=== PATIENT | male | born 1960 | race Hispanic/Latino ===

== ENCOUNTER 2019-06-28 16:41 | Inpatient (IN) | payer OTHER ==
[2019-06-28 17:50] LABS: #Lymphocytes 1.3 thou/uL (1.20-3.40); #Monocytes 0.7 thou/uL (0.11-0.59); #Neutrophils 5.6 thou/uL (1.40-6.50); %Basophils 0.1 % (0.0-1.0); %Eosinophils 0.4 % (0.0-10.0); %Lymphocytes 16.8 % (21.0-51.0); %Monocytes 8.7 % (0.0-10.0); %Neutrophils 73.9 % (42.0-75.0); Hemoglobin 7.8 g/dL (14.0-18.0); Mean Corpuscular HGB CONC 35.3 g/dL (32.0-36.0); Mean Corpuscular Hemoglobin 33.1 pg (27.0-31.0); Mean Corpuscular Volume 93.9 fL (78.0-98.0); Mean Platelet Volume 8.5 fL (7.4-10.4); Platelet Count 153 thou/uL (130-400); RBC Distribution Width 19.9 % (11.5-14.5); Red Blood Cell (RBC) Count 2.37 mill/uL (4.70-6.10); White Blood Cell (WBC) Count 7.6 thou/uL (4.8-10.8)
--- NOTE | 2019-06-28 17:57 | RAD ---
FRONTAL RADIOGRAPH CHEST: 06/28/19 COMPARISON: None. HISTORY: Chest pain. FINDINGS: Catheter tubing overlies the right upper quadrant. There is a Port-A-Cath inserted via left subclavia n approach with distal tip overlying the cavoatrial junction. No pneumothorax or pleural fluid. No fo [place] consolidation or alveolar edema. IMPRESSION: No focal consolidation or alveolar edema. POS: DAVI
[2019-06-28 18:00] LABS: ALT (SGPT) 16 U/L (8-55); AST (SGOT) 16 U/L (5-34); Albumin 3.4 g/dL (3.5-5.0); Alkaline Phosphatase 419 U/L (40-110); Bilirubin, Total 1.8 mg/dL (0.2-1.2); CK (CPK) 18 U/L (30-200); Calc. Creatinine Clearance 0 mL/min (70-130); Calcium 9.2 mg/dL (7.8-10.44); Chloride 98 mmol/L (98-107); Estimated GFR-MDRD 10; Globulin 4.4 g/dL (2.4-3.5); Glucose 126 mg/dL (70-105); Lipase 156 U/L (8-78); Magnesium 2.3 mg/dL (1.6-2.6); Potassium 3.7 mmol/L (3.5-5.1); Protein, Total 7.8 g/dL (6.0-8.3); Sodium 121 mmol/L (136-145)
[2019-06-28 18:11] LABS: BUN (Urea Nitrogen) 136 mg/dL (8.4-25.7); Carbon Dioxide Less than 8 mmol/L (22-29)
[2019-06-28 18:25] LABS: Anisocytosis SLIGHT = 6-15 cells (100X) (0-5/hpf); MDiff Complete? YES; Ovalocytes SLIGHT = 2-5 cells (100X) (0-1/hpf); Platelet Morphology Comment Appears Adequate; Polychromasia SLIGHT = 2-3 cells (100X) (0-2/hpf)
[2019-06-28 18:38] LABS: Bilirubin Negative (Negative); Blood, Urine 2+ (Negative); Clarity Clear (Clear); Glucose, Urine (Dipstick) Normal (Negative); Leukocyte Negative Leu/uL (Negative); Nitrite Negative (Negative); Protein, Urine (Dipstick) 50 mg/dL (Neg-Trace); RBC/HPF 21-50 HPF (0-3); Squamous Epithelial 0-3 HPF (0-3); Urobilinogen Normal mg/dL (Less than 2)
[2019-06-28] MEDS ORDERED: Ondansetron PF 4 MG/2 ML Vial IVP PRN (18:44)
[2019-06-28] MEDS ORDERED: HYDROcodone/Acetaminophen 5/325 mg Tablet PO PRN (18:44)
[2019-06-28] MEDS ORDERED: Sodium Bicarbonate 150 MEQ in Dextrose 5 % And 0.9 % NaCl 1,000 ML IV SCH (18:45)
[2019-06-28 18:51] LABS: Bacteria/HPF Rare-Few HPF (None Seen)
--- NOTE | 2019-06-28 20:00 | HP ---
CHIEF COMPLAINT: He was sent to the hospital from his oncologist's office with concerns of renal failure. HISTORY OF PRESENT ILLNESS: The patient is a 58-year-old male with history of cholangiocarcinoma, status post surgery and drain placement in [place], who has been getting chemotherapy with Dr. Wu, and his last dose was a month ago. Since then, he has been experiencing worsening kidney function, that was managed with IV fluids on an outpatient basis, but progressed over the past 2 weeks. He was sent to the emergency department for further evaluation. In the ER, the patient was complaining of abdominal pain and feeling tired and weak. His laboratory studies revealed anemia with hemoglobin level of 7.8 and renal failure with creatinine level of 5.63 and BUN of 137. In addition, he was found to be acidotic, and his sodium level was low. The patient denies any nausea or vomiting. He denies fever, chills, shortness of breath, or cough. REVIEW OF SYSTEMS: Negative except as noted in HPI. PAST MEDICAL HISTORY: As noted above. PAST SURGICAL HISTORY: He had a procedure for his cholangiocarcinoma, and biliary drains were placed. We will need to obtain the medical records for further clarification. SOCIAL HISTORY: The patient denies smoking, alcohol use, or illicit drug use. PHYSICAL EXAMINATION: GENERAL: The patient is alert and oriented. HEENT: Head is normocephalic and atraumatic. Extraocular muscles are intact. Pupils are equal and reactive to light. He is not overtly jaundiced. NECK: Supple. CHEST: Revealed diminished breath sounds at the bases. CARDIOVASCULAR: Revealed normal S1 and S2. No murmurs, rubs, or gallops. ABDOMEN: Slightly distended and tender in the right upper quadrant. EXTREMITIES: Did not show any rashes or edema. NEUROLOGIC: Revealed normal cranial nerves 2 through 12, and no focal deficits. ASSESSMENT: 1. Acute renal failure associated with likely acute tubular necrosis related to dehydration and chemotherapy. 2. Hyponatremia. 3. Likely mixed anion gap and non-anion gap acidosis related to his acute renal failure. 4. Dehydration. 5- Anemia of chronic disease. PLAN: The patient will be admitted to the hospital. We will initiate IV normal saline with sodium bicarbonate per Nephrology recommendations. We will monitor his electrolytes closely. We will also obtain Oncology consultation and Palliative Care consult. His prognosis is grim. This was discussed with Dr. Wu. Job ID: [id number]
[2019-06-28 21:07] LABS: Creatinine, Urine 76.59 mg/dL (63-166)
--- NOTE | 2019-06-28 21:25 | CON ---
DATE OF CONSULTATION: 06/28/2019 SERVICE: Nephrology. REASON FOR CONSULTATION: Acute kidney injury. REQUESTING PHYSICIAN: Maria Alejandra Hays MD CHIEF COMPLAINT: Nausea, vomiting, and renal insufficiency. HISTORY OF PRESENT ILLNESS: A 58-year-old male with known history of metastatic cholangiocarcinoma status post surgery and drain placement, CKD, and intermittent nausea and vomiting as well as poor oral intake, who has been receiving IV fluids intermittently on an outpatient basis at the oncology office, who was admitted for further evaluation and management of nausea and vomiting as well as acute kidney injury. The patient reportedly developed worsening nausea and vomiting in the last 2 weeks despite IV fluid and was noted to have worsening renal function, hence was directed to present to the emergency room by the oncologist. History is limited as patient has memory lapses. He was admitted due to poor oral intake, some abdominal pain, nausea, vomiting, and generalized weakness. He however denied diarrhea, fever, chills, or rigors. He also denied shortness of breath or cough. On presentation to the ER, the patient was found to be dehydrated with creatinine of 5.63, as well as BUN of 137 and sodium of 121. He is admitted for further evaluation and treatment. Nephrology consult was requested for management of acute kidney injury and electrolyte derangements. PAST MEDICAL HISTORY: 1. Hypertension. 2. Diabetes mellitus. 3. Gout. 4. Chronic kidney disease. 5. Cholangiocarcinoma. 6. Obstructive jaundice, status post biliary stent placement. PAST SURGICAL HISTORY: Biliary drain placement. FAMILY HISTORY: Reviewed, but noncontributory. SOCIAL HISTORY: There is no history of smoking, alcohol use, or drug use. ALLERGIES: NO KNOWN DRUG ALLERGIES REPORTED. MEDICATIONS: Prior to hospital medications: This could not be validated and reconciled at this time and the patient has poor memory of his home medications. REVIEW OF SYSTEMS: This is grossly limited due to the patient's condition. Otherwise grossly negative other than pertinent positives and negatives included in the history of present illness. PHYSICAL EXAMINATION: VITAL SIGNS: Temperature 97.8, pulse 83, respiratory rate 14, SpO2 of 100% on room air, blood pressure 105/75. GENERAL: Chronically ill-looking male, in no obvious distress. Afebrile, acyanotic. HEENT: Normocephalic, atraumatic. Oral mucosa is dry. NECK: Supple with no obvious JVD. CARDIOVASCULAR: Regular rhythm and rate with normal heart sounds one and two. RESPIRATORY: Fair air entry bilateral, diminished at both bases with no obvious rhonchi or use of accessory muscles. GI: Mildly distended and tender in the right upper quadrant. Bowel sound is hypoactive. EXTREMITIES: Diffuse muscular atrophy noted. No obvious edema or erythema appreciated. SKIN: No obvious rash or ecchymosis appreciated. PUFF IRONER: Conscious and alert, oriented x2 at least. Moves all extremities. Cranial nerves 2 through 12 are grossly intact. DIAGNOSTIC DATA: CBC showed WBC count of 7.6, hemoglobin of 7.8, MCV of 93.9, platelets of 153. BMP today showed sodium 121, potassium 3.7, chloride 98, CO2 less than 8, BUN 136, creatinine 5.63, glucose 126, calcium 9.2, magnesium 2.3, total bilirubin 1.8, AST 16, ALT 16, alkaline phosphatase 419, total protein 7.8, albumin 3.4, globulin 4.4. CK is 18, troponin is 0.017. Lipase is 156. Urinalysis showed yellow clear urine with pH of 5.5, specific gravity of 1.012. Urine protein of 50, normal glucose, negative ketone, 2+ blood, negative nitrite , bilirubin, and normal urobilinogen, and negative leukocyte esterase. Microscopy showed 21 to 50 rbc's and 4 to 6 wbc's and rare bacteria. Review of medical records showed that the patient had creatinine of 2.26 on June 14, 2019. Chest x-ray performed earlier today showed no focal consolidation or alveolar edema. ASSESSMENT: 1. Acute kidney injury: Most likely due to hemodynamic factors related to volume depletion, dehydration. Acute tubular necrosis is a concern given chronicity and severity of volume depletion. 2. Severe dehydration/volume depletion. 3. Severe metabolic acidosis: Due to acute kidney injury with possible contribution from gastrointestinal losses, sepsis is another concern. 4. Hyponatremia: Most likely due to hypovolemia and volume depletion with appropriate ADH secretion. Some component of syndrome of inappropriate ADH secretion cannot be ruled out given the patient had some degree of chronic hyponatremia. 5. Chronic and intermittent nausea and vomiting. 6. Failure to thrive. 7. Cholangiocarcinoma with obstructive jaundice, status post biliary stent placement. 8. Anemia PLAN: 1. Start bicarb containing IV fluid. 2. Get urine electrolytes. 3. Avoid nephrotoxic agents. 4. Recheck renal function tests and electrolytes in the morning. 5. Antiemetics as needed. 6. [place] oral intake advised. 7. Further treatment to follow depending on hospital course. Job ID: [id number] MTDD
[2019-06-28] MEDS: Heparin 5,000 UNITS/ML VIAL SC SCH (21:39)
[2019-06-29 04:28] LABS: #Lymphocytes 1.4 thou/uL (1.20-3.40); #Monocytes 0.7 thou/uL (0.11-0.59); #Neutrophils 4.7 thou/uL (1.40-6.50); %Basophils 0.4 % (0.0-1.0); %Eosinophils 0.4 % (0.0-10.0); %Lymphocytes 20.5 % (21.0-51.0); %Monocytes 10.8 % (0.0-10.0); %Neutrophils 67.9 % (42.0-75.0); Hemoglobin 6.9 g/dL (14.0-18.0); Mean Corpuscular HGB CONC 34.2 g/dL (32.0-36.0); Mean Corpuscular Hemoglobin 32.1 pg (27.0-31.0); Mean Corpuscular Volume 93.8 fL (78.0-98.0); Mean Platelet Volume 8.6 fL (7.4-10.4); Platelet Count 126 thou/uL (130-400); Red Blood Cell (RBC) Count 2.15 mill/uL (4.70-6.10); White Blood Cell (WBC) Count 6.9 thou/uL (4.8-10.8)
[2019-06-29 04:49] LABS: Anion Gap 20 mmol/L (10-20); Calc. Creatinine Clearance 0 mL/min (70-130); Carbon Dioxide 11 mmol/L (22-29); Chloride 101 mmol/L (98-107); Estimated GFR-MDRD 12; Glucose 99 mg/dL (70-105); Potassium 3.3 mmol/L (3.5-5.1); Sodium 129 mmol/L (136-145)
[2019-06-29 05:06] LABS: BUN (Urea Nitrogen) 137 mg/dL (8.4-25.7)
[2019-06-29 05:28] VITALS: BMI 20.4
[2019-06-29] MEDS: Lactated Ringer's 1,000 ML IV SCH ×3 (07:13→21:36)
[2019-06-29] MEDS: Sodium Bicarbonate 150 MEQ in Dextrose 5% in Water 1,000 ML IV SCH (09:22)
[2019-06-29] MEDS: Heparin 5,000 UNITS/ML VIAL SC SCH ×3 (09:22→21:30)
[2019-06-29] MEDS ORDERED: Potassium Chloride 20 MEQ TAB PO SCH (10:45)
--- NOTE | 2019-06-29 11:48 | PRG ---
DATE OF SERVICE: 06/29/2019 SERVICE: Nephrology. SUBJECTIVE: A 58-year-old male with known history of cholangiocarcinoma, status post percutaneous biliary drainage, admitted due to worsening failure to thrive associated with poor oral intake and acute kidney injury. The patient was found to have severe dehydration with marked azotemia. He was admitted with some vomiting, but denied diarrhea. Remained afebrile. OBJECTIVE: VITAL SIGNS: Temperature 97.4, pulse 91, respiratory rate 14, SpO2 100% on room air, blood pressure 91/55. GENERAL: Chronically ill-looking male, in no obvious distress. Afebrile, acyanotic. HEENT: Normocephalic, atraumatic. Oral mucosa is mildly dry. NECK: Supple with no JVD. CARDIOVASCULAR: Regular rhythm and rate with some transmitted breath sounds. RESPIRATORY: Fair air entry bilaterally with some transmitted breath sounds. No obvious rhonchi or use of accessory muscles appreciated. CARDIOVASCULAR: Regular rhythm and rate with normal heart sounds one and two. GI: Abdomen is scaphoid. Bilateral upper quadrant percutaneous tubes noted. Bowel sound is normoactive. EXTREMITIES: Diffuse muscular atrophy of the lower extremities noted. No erythema or edema appreciated. 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 DIAGNOSTIC DATA: CBC showed WBC count of 6.9, hemoglobin of 6.9, MCV of 98.3, platelets of 126. BMP today showed sodium 129, potassium 3.3, chloride 101, CO2 of 11, BUN 137, creatinine 5.05, calcium 9.0, glucose 99. Urinalysis collected yesterday showed urine creatinine of 76.59 and urine sodium of less than 20, and urine urea nitrogen of 506 with fractional excretion of urea and sodium consistent with prerenal etiology. ASSESSMENT: 1. Acute kidney injury: Due to severe dehydration. 2. Severe dehydration. 3. Hypokalemia. 4. Hyponatremia: Due to volume depletion with appropriate ADH secretion. Sodium level is increasing. 5. Severe metabolic acidosis. 6. Protein-calorie malnutrition. 7. Failure to thrive. 8. Cholangiocarcinoma with obstructive jaundice, status post bilateral percutaneous drainage. 9. Volume depletion. PLAN: 1. We will increase IV fluid therapy. 2. We will start lactated Ringer's at 150 mL/hour and decrease sodium bicarbonate rate to 15 mL/hour, bringing it to a total of 200 mL/hour. 3. [place] oral intake advised. 4. Nutritional rehabilitation recommended. 5. We will replete serum potassium. 6. We will get serum phosphorus and magnesium in the morning. 7. Further treatment to follow depending on hospital course. Job ID: [id number]
--- NOTE | 2019-06-29 13:29 | CON ---
DATE OF CONSULTATION: REASON FOR CONSULT: Cholangiocarcinoma. HISTORY OF PRESENT ILLNESS: Mr. Americo Beauchamp is an unfortunate 58-year-old gentleman, who has cholangiocarcinoma, he is status post debulking and two biliary drain placements. He was last admitted here in May. He has had multiple drain replacements and issues with clogging. He has been getting dose reduced chemotherapy of cisplatin and gemcitabine. His last dose, however, was on June 01. He has been coming several days a week since that time for IV hydration. He was in our clinic yesterday, feeling poorly overall. He did receive 2 L of fluid. Chemistry drawn showed worsening creatinine of 5.63. He was acidotic with a CO2 of less than 8. His sodium was 121. He was sent to the ER from our facility for admission and treatment. Mr. Americo Beauchamp has been struggling with poor appetite, weight loss, and pain. He has been advised to consider hospice, but has declined. He is seen at bedside and is resting comfortably at this time. PAST MEDICAL HISTORY: 1. Metastatic cholangiocarcinoma. 2. Type 2 diabetes. 3. Hypertension. 4. Chronic kidney disease. 5. Anemia. 6. Gout. 7. Kidney stones. 8. Colon polyp. PAST SURGICAL HISTORY: 1. Cystoscopy. 2. Ureteral stent placement. 3. Colonoscopy with polypectomy. 4. EUS. 5. Biliary stenting with drain placement. ALLERGIES: NO KNOWN DRUG ALLERGIES. HOME MEDICATIONS: 1. Dronabinol 5 mg b.i.d. 2. [place] 10/325 p.r.n. 3. Zofran p.r.n. 4. Remeron 15 mg p.o. at bedtime. FAMILY HISTORY: No history of cancer. SOCIAL HISTORY: , lives with his spouse. He is English-speaking only. No alcohol, tobacco, or illicit drug use. REVIEW OF SYSTEMS: Positive for weight loss, fatigue, weakness, and abdominal pain. PHYSICAL EXAMINATION: VITAL SIGNS: Temperature is 97.4, pulse is 91, respiratory rate 14, BP is 91/ 55. He is 100% on room air. GENERAL: This is a chronically ill-appearing male, in no acute distress. He is emaciated. HEENT: Normocephalic and atraumatic. He has scleral icterus. CV: Regular rate and rhythm. LUNGS: Clear anterior. ABDOMEN: Has right upper quadrant and epigastric tenderness. He has two biliary drains in place with green drainage. EXTREMITIES: There is no clubbing or cyanosis. SKIN: No rash. HEMATOLOGIC: No petechiae or purpura. NEUROLOGIC: Nonfocal. PERTINENT LABS AND X-RAYS: Current WBCs are 6.9, hemoglobin 6.9, hematocrit 20.2, platelet count is 126,000. He has 68% neutrophils, 20% lymphocytes. Sodium is 129, potassium 3.3, chloride 101, CO2 is 11, BUN is 137, creatinine 5.05, calcium 9, magnesium 2.3, bilirubin is 1.8, AST 16, ALT is 16, alkaline phosphatase is 419, troponin is 0.017. Serum total protein is 7.8, albumin 3.4, globulin 4.4. Lipase is 156. Chest x-ray shows no acute process. ASSESSMENT: 1. Acute on chronic renal failure. 2. Cholangiocarcinoma. 3. Failure to thrive. DISCUSSION: Case was discussed with Dr. Wu. The patient is on a bicarb drip for IV hydration. Nephrology has seen the patient and I appreciate their recommendations. The patient's prognosis is extremely grim. He and his family have been hesitant to pursue hospice. I will ask the Palliative Care Team to see the patient to discuss goals of care. The patient has been admitted multiple times under his full name Jimmie Beauchamp. We will discuss this with the registrar. We will follow along with his hospital course. Thank you for the consult. Job ID: [id number] MTDD
--- NOTE | 2019-06-29 15:23 | PDOC.HOSPP ---
- Subjective Encounter Date: 06/29/19 Subjective: Looks ill. Complains of feeling weak and pain in his abdomen. - Objective Vital Signs & Weight: Vital Signs (12 hours) Temp Pulse Pulse Pulse Pulse Resp BP 06/29/19 13:04 97.6 F 85 16 06/29/19 12:04 96.6 F L 94 16 06/29/19 11:35 88 94 91/65 06/29/19 07:26 06/29/19 07:22 97.4 F L 91 14 BP BP BP Pulse Ox 06/29/19 13:04 99/65 100 06/29/19 12:04 97/62 100 06/29/19 11:35 97/62 06/29/19 07:26 100 06/29/19 07:22 91/55 L 100 Weight Admit Weight 126 lb 8 oz Weight 126 lb 6.4 oz I&O: 06/28/19 06/29/19 06/30/19 06:59 06:59 06:59 Intake Total 700 350 Output Total 620 250 Balance 80 100 Result Diagrams: 06/29/19 04:09 06/29/19 04:09 Hospitalist ROS - Medication Medications: Active Medications Generic Name Dose Route Start Last Admin Trade Name Freq PRN Reason Stop Dose Admin Hydrocodone Bitart/Acetaminophen 1 tab 06/28/19 18:44 06/28/19 23:42 [place] 5/325 PO 1 tab Q6H PRN Administration Moderate Pain (4-6) Heparin Sodium (Porcine) 5,000 units 06/28/19 21:00 06/29/19 09:22 Heparin SC 5,000 units TID OTILIA Administration Lactated Ringer's 1,000 mls @ 150 mls/hr 06/29/19 07:15 06/29/19 07:13 Lactated Ringer's IV 1,000 mls .Q6H40M OTILIA Administration Sodium Bicarbonate 150 meq/ 1,150 mls @ 50 mls/hr 06/29/19 07:00 06/29/19 09: 22 Dextrose/Water IV 1,150 mls INF OTILIA Administration Sodium Chloride 10 ml 06/28/19 21:00 06/29/19 09:22 Flush - Normal Saline IVF 10 ml Q12HR OTILIA Administration - Exam General Appearance: ill appearing Neck: supple Respiratory: normal chest expansion, no tachypnea Gastrointestinal: soft, normal bowel sounds, tender to palpation Neurological: cranial nerve grossly intact, no focal deficits Hosp A/P (1) ARF (acute renal failure) Status: Acute (2) Dehydration Code(s): E86.0 - DEHYDRATION Status: Acute (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 Acidosis is slightly better. Palliative care consult for goals of care. Oncology and nephrology on board.
[2019-06-29] MEDS ORDERED: Prevnar 13-Val Conj/PF 0.5 ML SYRINGE IM ONE (21:00)
[2019-06-30] MEDS: Lactated Ringer's 1,000 ML IV SCH ×4 (03:54→20:51)
[2019-06-30] MEDS: Sodium Bicarbonate 150 MEQ in Dextrose 5% in Water 1,000 ML IV SCH (07:08)
[2019-06-30] MEDS: Heparin 5,000 UNITS/ML VIAL SC SCH ×3 (08:49→22:21)
[2019-06-30 10:13] LABS: Anion Gap 18 mmol/L (10-20); BUN (Urea Nitrogen) 110 mg/dL (8.4-25.7); Calc. Creatinine Clearance 21 mL/min (70-130); Calcium 8.9 mg/dL (7.8-10.44); Carbon Dioxide 13 mmol/L (22-29); Chloride 105 mmol/L (98-107); Estimated GFR-MDRD 21; Glucose 93 mg/dL (70-105); Sodium 133 mmol/L (136-145)
[2019-06-30 10:15] LABS: Potassium 2.7 mmol/L (3.5-5.1)
--- NOTE | 2019-06-30 10:32 | PRG ---
DATE OF SERVICE: 06/30/2019 SERVICE: Nephrology. SUBJECTIVE: A 58-year-old male with cholangiocarcinoma, admitted due to failure to thrive, nausea, vomiting, poor oral intake, associated with acute kidney injury and electrolyte derangements. The patient was started on IV fluids. He reports nausea and poor appetite. Otherwise, thinks he is getting better. Remained afebrile. OBJECTIVE: VITAL SIGNS: Temperature 98.4, pulse 74, respiratory rate 18, SpO2 of 100% on room air, blood pressure 95/62. GENERAL: Chronically ill-looking male, in no obvious distress. Fatigued, but acyanotic and afebrile. HEENT: Normocephalic and atraumatic. Oral mucosa is dry. CARDIOVASCULAR: Regular rhythm and rate with normal heart sounds 1 and 2. RESPIRATORY: Fair air entry bilaterally with some transmitted breath sounds. No obvious crackle, rhonchi, or use of accessory muscles. GI: Flat, soft with no distention. Bowel sound is normoactive. Bilateral upper quadrant percutaneous tubes noted. EXTREMITIES: Diffuse muscular atrophy noted. No edema or erythema appreciated. TEACHER AIDE: Conscious and alert. Oriented to person and place at least. Moves all extremities but weakly. DIAGNOSTIC DATA: A.m. labs are still pending. Discussed with the patient on need to get blood sample collected. ASSESSMENT: 1. Acute kidney injury: Due to severe dehydration. 2. Severe dehydration. 3. Hypokalemia. 4. Hyponatremia: Due to appropriate ADH related to severe dehydration. 5. Metabolic acidosis. 6. Failure to thrive/protein-calorie malnutrition. 7. Cholangiocarcinoma with obstructive jaundice, status post bilateral percutaneous drainage. 8. Volume depletion. PLAN: 1. Continue IV fluid therapy. 2. Get renal function and electrolytes as ordered. 3. Plan to adjust IV fluid therapy after reviewing other blood work. 4. Nutritional rehabilitation recommended. 5. Increase oral intake. 6. Further treatment to follow depending on hospital course. Job ID: [id number]
--- NOTE | 2019-06-30 10:45 | PDOC.PALCO ---
Palliative Care Consult - Consult Details Requesting Physician: Dr Hays Reason for Consult: goals of care, advance directives assistance, family support Family Members Present: Patient spouse, brother and daughter - Pertinent HPI 58 year old male with cholangiocarcinoma that has had continued poor appetite, nausea, vomiting, and failure to thrive. Continued worsening renal function. He has been managed by an outpatient basis with IV fluids, but secondary to continued decline was sent to the emergency room for further evaluation. Admitted for management of acute renal failure, hyponatremia, dehydration, anemia. - Social History Smoking Status: Never smoker Smoking: no tobacco exposure Alcohol Use: none Drug Use History: none Living Situation: - Medications MAR Reviewed: Yes - Allergies Allergies/Adverse Reactions: Allergies Allergy/AdvReac Type Severity Reaction Status Date / Time No Known Allergies Allergy Verified 06/28/19 20:19 - Subjective Weakness, cachetic. Flat affect, withdrawn. - ROS Constitutional: alert, loss appetite, weakness ENT: other (denies sore throat, congestion) Respiratory: other (denies cough, shortness of breath) Cardiology: other (negative for chest pain, palpitations) Gastrointestinal: abdominal pain, bloating, intolerance of foods Neurological: other (negative for changes in coordination, speech) - Objective Vital Signs: Vital Signs - Most Recent Temp Pulse Resp BP Pulse Ox 98.4 F 91 18 96/62 100 06/30/19 07:23 06/30/19 08:03 06/30/19 07:23 06/30/19 08:03 06/30/19 07:23 Palliative Performance Scale: 40 - Physical Exam Constitutional: cachectic, ill appearing HEENT: EOMI, moist MMs, scleral icterus Respiratory: no wheezing, unlabored breathing Cardiovascular: RRR Gastrointestinal: soft Deviation from normal: tenderness, drains to abdomen Genitourinary: continent Musculoskeletal: no cyanosis, no clubbing, diffuse muscle atrophy Neurology: moves all 4 limbs, no focal deficits Skin: no lesions, fragile Deviation from normal: icteric Psychiatric: A&O x 3, depressed, flat affect - Problem List (1) Palliative care encounter Code(s): Z51.5 - ENCOUNTER FOR PALLIATIVE CARE Status: Acute (2) Physical deconditioning Code(s): R53.81 - OTHER [place] Status: Acute (3) ARF (acute renal failure) Status: Acute (4) Cholangiocarcinoma Code(s): C22.1 - INTRAHEPATIC BILE DUCT CARCINOMA Status: Acute (5) Dehydration Code(s): E86.0 - DEHYDRATION Status: Acute (6) Metabolic acidosis Code(s): E87.2 - ACIDOSIS Status: Acute (7) Moderate malnutrition Code(s): E44.0 - MODERATE PROTEIN-CALORIE MALNUTRITION Status: Acute - Plan/Recommendations Plan: Attempting to establish contact with the family to arrange a family meeting to discuss goal of care that is parallel with poor prognosis. Spoke with the patient and Daughter Diana who translates for her mother. They are to arrive for a family meeting this afternoon to discuss prognosis, and address Goal of care that is related to terminal condition. Dr Hays notified. family meeting with Dr Hays at 2:30 and follow up meeting today at 5pm as per family request. They have elected to discharge home when appropriate and have Hospice follow up in the Home setting with the patient and his family. Communicated with Dr Hays and will place CM consult to send patient information to Hospice agencies that are accepting of patient insurance to contact patient daughter for meeting after discharge. Patient and family did not want to discuss resuscitation status, full resuscitation currently. Patient and family will revisit with hospice. Palliative Care will sign off at this time. Please reconsult if needed in the future. [75] minutes spent on this encounter with >50% of the time in counseling and coordination of care. Thank you for this very appropriate consult.
[2019-06-30 14:08] LABS: Mean Corpuscular HGB CONC 35.1 g/dL (32.0-36.0); Mean Corpuscular Hemoglobin 32.6 pg (27.0-31.0); Mean Corpuscular Volume 92.9 fL (78.0-98.0); Mean Platelet Volume 9.6 fL (7.4-10.4); Platelet Count 100 thou/uL (130-400); RBC Distribution Width 20.1 % (11.5-14.5); Red Blood Cell (RBC) Count 2.46 mill/uL (4.70-6.10); White Blood Cell (WBC) Count 7.2 thou/uL (4.8-10.8)
[2019-06-30 14:29] LABS: Anisocytosis SLIGHT = 6-15 cells (100X) (0-5/hpf); Band 4 % (5-11); Eosinophils 1 % (0-10); Lymphocytes 8 % (21-51); MDiff Complete? YES; Monocytes 8 % (0-10); Neutrophil 77 % (42-75); Platelet Morphology Comment Appears Decreased; Polychromasia SLIGHT = 2-3 cells (100X) (0-2/hpf); Reactive Lymphocytes 2 % (0-10); Target Cells SLIGHT = 2-5 cells (100X) (0-1/hpf); Tear Drops SLIGHT = 2-5 cells (100X) (0-1/hpf)
--- NOTE | 2019-06-30 15:38 | PDOC.HOSPP ---
- Subjective Encounter Date: 06/30/19 Subjective: Met with the patient and family regarding goals of care. - Objective Vital Signs & Weight: Vital Signs (12 hours) Temp Pulse Pulse Pulse Resp BP BP 06/30/19 11:36 98.8 F 77 16 06/30/19 08:03 91 78 96/62 109/63 06/30/19 07:23 98.4 F 78 18 BP Pulse Ox 06/30/19 11:36 104/69 100 06/30/19 08:03 06/30/19 07:23 95/62 100 Weight Admit Weight 126 lb 8 oz Weight 129 lb 9.6 oz I&O: 06/29/19 06/30/19 07/01/19 06:59 06:59 06:59 Intake Total 700 4729 Output Total 620 1601 Balance 80 3128 Result Diagrams: 06/30/19 13:58 06/30/19 09:21 Hospitalist ROS - Medication Medications: Active Medications Generic Name Dose Route Start Last Admin Trade Name Freq PRN Reason Stop Dose Admin Hydrocodone Bitart/Acetaminophen 1 tab 06/28/19 18:44 06/28/19 23:42 [place] 5/325 PO 1 tab Q6H PRN Administration Moderate Pain (4-6) Heparin Sodium (Porcine) 5,000 units 06/28/19 21:00 06/30/19 15:08 Heparin SC Not Given TID OTILIA Lactated Ringer's 1,000 mls @ 150 mls/hr 06/29/19 07:15 06/30/19 10:40 Lactated Ringer's IV 1,000 mls .Q6H40M OTILIA Administration Sodium Bicarbonate 150 meq/ 1,150 mls @ 50 mls/hr 06/29/19 07:00 06/30/19 07: 08 Dextrose/Water IV 1,150 mls INF OTILIA Administration Sodium Chloride 10 ml 06/28/19 21:00 06/30/19 08:40 Flush - Normal Saline IVF Not Given Q12HR OTILIA - Exam General Appearance: ill appearing ENT: normocephalic atraumatic Neck: supple Respiratory: normal chest expansion, no tachypnea Neurological: cranial nerve grossly intact Hosp A/P (1) ARF (acute renal failure) Status: Acute (2) Dehydration Code(s): E86.0 - DEHYDRATION Status: Acute (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 Acidosis is slightly better. Discussed goals of care during palliative care meeting. The family voiced understanding and asked for some time to discuss with patient. Replace potassium.
[2019-06-30] MEDS ORDERED: Potassium Chloride 20 MEQ TAB PO SCH ×2 (15:45→22:00)
[2019-06-30] MEDS: Sodium Bicarbonate Tab 325 MG TAB PO SCH (20:49)
[2019-07-01] MEDS: Sodium Bicarbonate 150 MEQ in Dextrose 5% in Water 1,000 ML IV SCH ×3 (02:11→13:10)
[2019-07-01] MEDS: Lactated Ringer's 1,000 ML IV SCH ×2 (02:11→13:22)
[2019-07-01] MEDS: Heparin 5,000 UNITS/ML VIAL SC SCH ×2 (09:17→16:19)
[2019-07-01] MEDS: Sodium Bicarbonate Tab 325 MG TAB PO SCH ×2 (09:23→20:48)
[2019-07-01 12:03] LABS: BUN (Urea Nitrogen) 70 mg/dL (8.4-25.7); Calc. Creatinine Clearance 41 mL/min (70-130); Calcium 8.3 mg/dL (7.8-10.44); Carbon Dioxide 26 mmol/L (22-29); Estimated GFR-MDRD 41; Glucose 138 mg/dL (70-105); Magnesium 1.5 mg/dL (1.6-2.6)
[2019-07-01 12:22] LABS: Anion Gap 13 mmol/L (10-20); Chloride 100 mmol/L (98-107); Sodium 136 mmol/L (136-145)
[2019-07-01 12:25] LABS: Potassium 2.7 mmol/L (3.5-5.1)
[2019-07-01 12:39] LABS: Anisocytosis MODERATE=16-30 cells (100X) (0-5/hpf); Hemoglobin 6.9 g/dL (14.0-18.0); MDiff Complete? YES; Mean Corpuscular HGB CONC 35.5 g/dL (32.0-36.0); Mean Corpuscular Hemoglobin 33.2 pg (27.0-31.0); Mean Corpuscular Volume 93.5 fL (78.0-98.0); Mean Platelet Volume 8.4 fL (7.4-10.4); Platelet Count 80 thou/uL (130-400); Platelet Morphology Comment Appears Decreased; Polychromasia SLIGHT = 2-3 cells (100X) (0-2/hpf); Red Blood Cell (RBC) Count 2.07 mill/uL (4.70-6.10); White Blood Cell (WBC) Count 3.6 thou/uL (4.8-10.8)
[2019-07-01 12:42] LABS: Lymphocytes 21 % (21-51); Monocytes 10 % (0-10); Neutrophil 69 % (42-75)
[2019-07-01] MEDS: Potassium Chloride 20 MEQ TAB PO SCH ×2 (13:06→17:11)
--- NOTE | 2019-07-01 13:55 | PDOC.HOSPP ---
- Subjective Encounter Date: 07/01/19 Subjective: The patient denies any pain today. - Objective Vital Signs & Weight: Vital Signs (12 hours) Temp Pulse Pulse Pulse Resp BP BP 07/01/19 10:10 76 80 111/66 117/76 07/01/19 08:43 77 75 115/70 111/73 07/01/19 07:40 97.8 F 82 16 07/01/19 03:03 98.6 F 73 18 BP Pulse Ox Pulse Ox Pulse Ox 07/01/19 10:10 100 100 07/01/19 08:43 07/01/19 07:40 115/70 100 07/01/19 03:03 111/70 100 Weight Admit Weight 126 lb 8 oz Weight 137 lb 8 oz I&O: 06/30/19 07/01/19 07/02/19 06:59 06:59 06:59 Intake Total 4729 5141 Output Total 1601 5715 Balance 3125 9305 Result Diagrams: 07/01/19 11:26 07/01/19 11:26 Hospitalist ROS - Medication Medications: Active Medications Generic Name Dose Route Start Last Admin Trade Name Freq PRN Reason Stop Dose Admin Hydrocodone Bitart/Acetaminophen 1 tab 06/28/19 18:44 06/28/19 23:42 [place] 5/325 PO 1 tab Q6H PRN Administration Moderate Pain (4-6) Heparin Sodium (Porcine) 5,000 units 06/28/19 21:00 07/01/19 09:17 Heparin SC Not Given TID OTILIA Sodium Bicarbonate 150 meq/ 1,150 mls @ 100 mls/hr 06/30/19 18:44 07/01/19 13 :10 Dextrose/Water IV 1,150 mls INF OTILIA Administration Lactated Ringer's 1,000 mls @ 100 mls/hr 06/30/19 19:00 07/01/19 13:22 Lactated Ringer's IV 1,000 mls .Q10H OTILIA Administration Potassium Chloride 40 meq 07/01/19 14:00 07/01/19 13:06 [place] PO 07/01/19 16:01 40 meq Q2HR OTILIA Administration Sodium Bicarbonate 650 mg 06/30/19 21:00 07/01/19 09:23 Bicarbonate, Sodium PO 650 mg BID OTILIA Administration Sodium Chloride 10 ml 06/28/19 21:00 07/01/19 09:23 Flush - Normal Saline IVF 10 ml Q12HR OTILIA Administration - Exam General Appearance: awake alert Neck: supple, no JVD Heart: RRR Respiratory: normal chest expansion, no tachypnea Gastrointestinal: soft Neurological: cranial nerve grossly intact, no focal deficits Hosp A/P (1) ARF (acute renal failure) Status: Acute (2) Dehydration Code(s): E86.0 - DEHYDRATION Status: Acute (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 Replace potassium. Transfuse one unit of PRBC for hb <7 likely related to his underlying malignancy. Discussed goals of care during palliative care meeting. The family voiced understanding and asked for some time to discuss with patient. If his condition continues to improve we can DC him home with outpatient followup to decide on hospice.
--- NOTE | 2019-07-01 14:08 | EKG ---
Test Reason : Blood Pressure : / mmHG Vent. Rate : 087 BPM Atrial Rate : 087 BPM P-R Int : 174 ms QRS Dur : 104 ms QT Int : 398 ms P-R-T Axes : 047 027 058 degrees QTc Int : 478 ms Normal sinus rhythm Low voltage QRS Borderline ECG Confirmed by CARLI PLAZA ([id number]), assignment editor EVY ARRINGTON ([id number]) on 07/01/2019 2:07:58 PM Referred By: Confirmed By:CARLI PLAZA
[2019-07-01] MEDS ORDERED: Magnesium 2 GM/50 ML 2 GM in Premix Bag 1 BAG IVPB SCH (17:00)
--- NOTE | 2019-07-01 17:37 | PRG ---
DATE OF SERVICE: 07/01/2019 SERVICE: Nephrology. SUBJECTIVE: A 58-year-old male with cholangiocarcinoma associated with obstructive jaundice, status post percutaneous drainage, admitted due to intractable nausea and vomiting as well as poor oral intake. Nephrology is seeing the patient for acute kidney injury and electrolyte derangements. The patient reports improvement in abdominal pain. The oral intake remains poor. Denied fever. Still on IV fluid therapy. OBJECTIVE: VITAL SIGNS: Temperature 97.7, pulse 82, respiratory rate 16, SpO2 of 100% on room air, blood pressure is 114/76. GENERAL: Chronically ill-looking male, in no obvious distress. Afebrile. Anicteric. Acyanotic. HEENT: Normocephalic, atraumatic. Oral mucosa is mildly dry. CARDIOVASCULAR: Regular rhythm and rate with normal heart sounds 1 and 2. RESPIRATORY: Fair air entry bilateral with no obvious crackle or rhonchi or use of accessory muscles. GI: Abdomen is flat, soft, with no obvious tenderness. Percutaneous drain noted. EXTREMITIES: Diffuse muscular atrophy noted. No edema or erythema. MEAT WASHER: Conscious and alert, oriented x3 with appropriate mental status. DIAGNOSTIC DATA: CBC today showed WBC count of 3.6, hemoglobin of 6.9, platelets of 80. BMP showed sodium 136, potassium 2.7, chloride 100, CO2 of 26. BUN 70, creatinine 1.72, glucose 138, calcium 8.3. Magnesium is 1.5. ASSESSMENT: 1. Acute kidney injury: Due to severe dehydration from poor oral intake and increased GI losses. Renal function has improved greatly. 2. Metabolic acidosis: Due to renal failure. Improved with sodium bicarbonate infusion. 3. Hypokalemia: Due to poor oral intake and increased losses with improving renal function. 4. Hypomagnesemia due to poor oral intake. 5. Anemia: Due to neoplasm. The patient has chronic anemia, but acute drop most likely is due to correction of hemoconcentration. 6. Physical deconditioning. 7. Protein-calorie malnutrition. 8. Cholangiocarcinoma. 9. Obstructive jaundice, status post percutaneous drainage. PLAN: 1. We will discontinue sodium bicarbonate infusion. We will however continue oral sodium bicarbonate supplementation. We will also continue IV fluid therapy with lactated Ringer's at 100 mL/h to augment oral intake. Oral intake is still suboptimal. [place] oral intake advised. 2. We will replete serum magnesium with 2 g of magnesium sulfate. 3. We will continue oral potassium supplementation. 4. Given persistent poor oral intake, artificial nutrition should be considered, otherwise readmission is most likely as oral intake during this hospitalization has remained poor. If the patient however declines artificial nutrition, hospice care should be considered as well. We will recheck renal function test in the morning. 5. Blood transfusion as per primary attending. Further treatment to follow depending on hospital course. Job ID: [id number]
[2019-07-01] MEDS ORDERED: Potassium Chloride 20 MEQ TAB PO SCH (21:00)
[2019-07-02] MEDS: Lactated Ringer's 1,000 ML IV SCH (00:16)
[2019-07-02] MEDS: Heparin 5,000 UNITS/ML VIAL SC SCH (01:32)
[2019-07-02 05:15] LABS: Anisocytosis MODERATE=16-30 cells (100X) (0-5/hpf); Band 6 % (5-11); Eosinophils 1 % (0-10); Hemoglobin 6.9 g/dL (14.0-18.0); Lymphocytes 16 % (21-51); MDiff Complete? YES; Mean Corpuscular HGB CONC 35.2 g/dL (32.0-36.0); Mean Corpuscular Hemoglobin 33.4 pg (27.0-31.0); Mean Corpuscular Volume 94.7 fL (78.0-98.0); Mean Platelet Volume 8.9 fL (7.4-10.4); Monocytes 7 % (0-10); Neutrophil 69 % (42-75); Platelet Count 85 thou/uL (130-400); Platelet Morphology Comment Appears Decreased; RBC Distribution Width 19.8 % (11.5-14.5); Red Blood Cell (RBC) Count 2.07 mill/uL (4.70-6.10); White Blood Cell (WBC) Count 4.2 thou/uL (4.8-10.8)
[2019-07-02] MEDS: Sodium Bicarbonate Tab 325 MG TAB PO SCH (08:45)
[2019-07-02 09:03] LABS: Albumin 2.8 g/dL (3.5-5.0); Anion Gap 12 mmol/L (10-20); BUN (Urea Nitrogen) 49 mg/dL (8.4-25.7); BUN/Creatinine Ratio 35.25; Calc. Creatinine Clearance 52 mL/min (70-130); Calcium 8.7 mg/dL (7.8-10.44); Carbon Dioxide 27 mmol/L (22-29); Chloride 104 mmol/L (98-107); Estimated GFR-MDRD 52; Glucose 89 mg/dL (70-105); Phosphorus 2.4 mg/dL (2.3-4.7); Potassium 3.8 mmol/L (3.5-5.1); Sodium 139 mmol/L (136-145)
--- NOTE | 2019-07-02 11:10 | PRG ---
DATE OF SERVICE: 07/02/2019 SERVICE: Nephrology. SUBJECTIVE: A 58-year-old male with cholangiocarcinoma admitted due to failure to thrive associated with severe dehydration and acute kidney injury as well as electrolyte derangements. The patient reports feeling better. Oral intake is improving. Denies nausea, vomiting, diarrhea, or fever. OBJECTIVE: VITAL SIGNS: Temperature 97.8, pulse 72, respiratory rate 16, SpO2 100% on room air, and blood pressure is 105/71. GENERAL: Clinically ill-looking male, in no obvious distress. Afebrile, acyanotic. HEENT: Normocephalic and atraumatic. Oral mucosa is moist. CARDIOVASCULAR: Regular rhythm and rate. Normal heart sounds 1 and 2. RESPIRATORY: Fair air entry bilateral with no obvious crackle or rhonchi or use of accessory muscles. GI: Flat, soft, nondistended with normal bowel sounds. Percutaneous drains noted. EXTREMITIES: Muscular atrophy noted. Otherwise, no edema or edema. UNDERWEAR WELTER: Conscious and alert and oriented x3 with appropriate mental status. Cranial nerves 2 through 12 are grossly intact. DIAGNOSTIC DATA: CBC today showed WBC count of 4.2, hemoglobin 6.9, and platelets 85. Renal function panel today showed sodium 139, potassium 3.8, chloride 104, CO2 27, BUN 49, creatinine 1.39, glucose 89, calcium 8.7, phosphorus 2.4, albumin 2.8. ASSESSMENT: 1. Acute kidney injury due to dehydration from poor oral intake and gastrointestinal losses, markedly improved. Creatinine is down from 5.63 to 1.3 and BUN is down from 137 to 49. 2. Hypokalemia, repleted. 3. Metabolic acidosis, resolved. 4. Hypomagnesemia, repleted with some magnesium sulfate. 5. Obstructive jaundice, status post percutaneous biliary drainage. 6. Cholangiocarcinoma, on treatment. 7. Protein-calorie malnutrition. PLAN: 1. We will discontinue IV fluids. 2. [place] oral intake advised. 3. We will start Ensure Enlive 3 times daily in addition to liberal oral intake. 4. We will recheck renal function test in the morning. 5. We will monitor electrolytes and replete as indicated. 6. The patient can be discharged from Nephrology point of view with close followup with oncologist and PCP. Please call for any clarification. 7. Anemia. Treatment as per primary attending. Job ID: [id number]
[2019-07-02 15:58] LABS: #Eosinphils 0.1 thou/uL (0.0-0.7); #Lymphocytes 0.8 thou/uL (1.20-3.40); #Monocytes 0.4 thou/uL (0.11-0.59); #Neutrophils 3.8 thou/uL (1.40-6.50); %Basophils 0.2 % (0.0-1.0); %Eosinophils 1.1 % (0.0-10.0); %Lymphocytes 16.3 % (21.0-51.0); %Neutrophils 74.4 % (42.0-75.0); Hemoglobin 8.4 g/dL (14.0-18.0); Mean Corpuscular HGB CONC 33.7 g/dL (32.0-36.0); Mean Corpuscular Hemoglobin 32.4 pg (27.0-31.0); Mean Corpuscular Volume 96.1 fL (78.0-98.0); Mean Platelet Volume 8.7 fL (7.4-10.4); Platelet Count 74 thou/uL (130-400); RBC Distribution Width 18.9 % (11.5-14.5)
--- NOTE | 2019-07-02 19:10 | PDOC.HOSPP ---
- Subjective Encounter Date: 07/02/19 Encounter Time: 10:00 Subjective: The patient is apoorva gill. No abd pain or vomiting. Hb 6, got 1 unit PRBC. Patient ambulated with PT and no SOB or dizziness but PT still recommending rehab - Objective Vital Signs & Weight: Vital Signs (12 hours) Temp Pulse Pulse Pulse Pulse Resp BP 07/02/19 19:04 98.3 F 75 16 07/02/19 16:00 97.8 F 72 16 07/02/19 15:02 79 78 129/85 07/02/19 13:50 97.0 F L 84 16 07/02/19 12:00 97.5 F L 76 16 07/02/19 11:40 97.5 F L 76 16 07/02/19 11:22 98.2 F 82 16 07/02/19 08:00 97.8 F 72 16 BP BP BP Pulse Ox 07/02/19 19:04 144/85 H 100 07/02/19 16:00 100 07/02/19 15:02 130/85 07/02/19 13:50 113/79 100 07/02/19 12:00 114/74 100 07/02/19 11:40 114/74 100 07/02/19 11:22 111/79 100 07/02/19 08:00 105/71 100 Weight Admit Weight 126 lb 8 oz Weight 140 lb 14.4 oz I&O: 07/01/19 07/02/19 07/03/19 06:59 06:59 06:59 Intake Total 5141 1989 375 Output Total 2225 1984 Balance 2916 5 375 Result Diagrams: 07/02/19 15:49 07/02/19 15:49 Hospitalist ROS - Review of Systems Constitutional: denies: fever, chills - Medication Medications: Active Medications Generic Name Dose Route Start Last Admin Trade Name Freq PRN Reason Stop Dose Admin Hydrocodone Bitart/Acetaminophen 1 tab 06/28/19 18:44 06/28/19 23:42 [place] 5/325 PO 1 tab Q6H PRN Administration Moderate Pain (4-6) Sodium Chloride 10 ml 06/28/19 21:00 07/02/19 14:18 Flush - Normal Saline IVF Not Given Q12HR OTILIA - Exam General Appearance: NAD, awake alert Eye: PERRL, anicteric sclera ENT: normocephalic atraumatic, no oropharyngeal lesions Neck: supple, no JVD Heart: RRR, no murmur, no gallops, no rubs Respiratory: CTAB, no wheezes, no rales, no ronchi Gastrointestinal: soft, non-tender, non-distended Gastrointestinal - other findings: biliary drain in place Extremities: no cyanosis, no clubbing, no edema Hosp A/P - Plan This is 58 year old male with cholangiocarcinoma who presented with J LUIS J LUIS - creatinine improved to 1.3, IV fluids stopped this morning, repeat up to 1.46. Will encourage oral intake, if creatinine stable per nephrology can d/c - d/c sodium bicarb tablets, recheck labs tomorrow Cholangiocarcinoma - palliative care evaluated, family not reading for hospice yet Anemia - Hb 6.9, s/p 1 unit PRBC, repeat up to 8 - will recheck iron levels tomorrow
[2019-07-03 04:39] LABS: Band 2 % (5-11); Lymphocytes 8 % (21-51); MDiff Complete? YES; Mean Corpuscular HGB CONC 33.7 g/dL (32.0-36.0); Mean Corpuscular Hemoglobin 32.4 pg (27.0-31.0); Mean Corpuscular Volume 95.9 fL (78.0-98.0); Mean Platelet Volume 9.2 fL (7.4-10.4); Monocytes 5 % (0-10); Neutrophil 85 % (42-75); Platelet Count 67 thou/uL (130-400); Platelet Morphology Comment Appears Decreased; RBC Distribution Width 19.1 % (11.5-14.5); Red Blood Cell (RBC) Count 2.49 mill/uL (4.70-6.10); White Blood Cell (WBC) Count 6.9 thou/uL (4.8-10.8)
[2019-07-03 04:46] LABS: Iron 44 ug/dL (65-175); Iron Binding Capacity, Total 131 mcg/dL (261-462); Transferrin, Serum 105 mg/dL (174-364)
[2019-07-03 05:01] LABS: Albumin 2.6 g/dL (3.5-5.0); Anion Gap 12 mmol/L (10-20); BUN (Urea Nitrogen) 40 mg/dL (8.4-25.7); Calc. Creatinine Clearance 55 mL/min (70-130); Calcium 8.4 mg/dL (7.8-10.44); Carbon Dioxide 25 mmol/L (22-29); Chloride 106 mmol/L (98-107); Estimated GFR-MDRD 56; Glucose 91 mg/dL (70-105); Iron 44 ug/dL (65-175); Iron Binding Capacity, Total 133 mcg/dL (261-462); Magnesium 1.7 mg/dL (1.6-2.6); Phosphorus 2.9 mg/dL (2.3-4.7); Sodium 139 mmol/L (136-145)
[2019-07-03 07:49] VITALS: BP 118/77; TEMP 97.4
--- NOTE | 2019-07-04 00:36 | DIS ---
DATE OF ADMISSION: 06/28/2019 DATE OF DISCHARGE: 07/03/2019 DISCHARGE DIAGNOSES: 1. Acute kidney injury secondary to dehydration 2. Anemia, 3. Hypokalemia 4. Leukopenia. SECONDARY DISCHARGE DIAGNOSES: History of cholangiocarcinoma. CONSULTATIONS: Nephrology with Dr. Polo Martin, Palliative Care with Marge Quintero, Oncology with Geraldine Manzo. BRIEF HISTORY OF PRESENT ILLNESS: This is a 58-year-old male with past medical history of cholangiocarcinoma, who had presented to the emergency room with abdominal pain, fatigue, and feeling tired. Upon presentation to the ER, the patient had a creatinine level of 5.63 and a CO2 level of less than 8. He also had a sodium level of 121. The patient was receiving chemotherapy, and his last dose was a month ago. The patient was admitted for further workup. HOSPITAL COURSE: Acute kidney injury secondary to dehydration/severe metabolic acidosis/hyponatremia: The patient was started on IV fluids. His creatinine continued to improve on a daily basis. He was started on sodium bicarb supplements as well. On 07/01, his creatinine improved to 1.39, and his bicarbonate improved to 27. His IV fluids and bicarbonate were discontinued. On , his creatinine further improved to 1.32 and his bicarb level stayed normal and sodium improved to 139. He was advised to continue to have adequate oral intake and/or hydrate himself adequately at home. He will be discharged home, follow up with his PCP in a week, and should have his kidney function repeated in a week. Anemia: The patient did have a hemoglobin of 6.9 on . He received 1 unit of PRBC with improvement in his hemoglobin to 8. His hemoglobin dropped again to 6.9 on 07/01. He received 1 unit of blood and his hemoglobin improved to 8.0. His iron studies on the showed a normal transferrin saturation of 34. He should follow up with his oncologist as an outpatient. Cholangiocarcinoma: The patient was seen in consultation by Oncology. They recommended palliative care consultation for hospice. Family meeting was held with Palliative Care on the , and family was not yet ready for hospice. He should follow up with his PCP. Consider hospice discussion as an outpatient. Physical deconditioning: The patient was evaluated by Physical Therapy, who had recommended rehab. However, the patient is not eligible for rehab or home health. Therefore, the patient will be discharged home. Physical Therapy stated the patient did not have any dizziness or shortness of breath on ambulation. He does have a walker and a cane at home. The patient should consider outpatient PT. DISCHARGE PHYSICAL EXAMINATION: VITAL SIGNS: Temperature 97.4, heart rate 84, respiratory rate 16, O2 saturation 99% on room air, blood pressure 129/85. GENERAL: The patient is alert, awake, oriented x3. CVS: Regular rate and rhythm with no murmurs, rubs, or gallops. LUNGS: Clear to auscultation bilaterally. ABDOMEN: Positive bowel sounds, soft, nontender, nondistended. The patient has drain in place. EXTREMITIES: No edema. PERTINENT LABORATORY DATA: CBC on 07/02: White blood cell count 6.9, hemoglobin 8.0, hematocrit 23.8, platelet count of 67. BMP on 07/02: Shows a creatinine 1.32. Iron panel on 07/02: Iron 44, TIBC 131, iron saturation 34%, transferrin 105. Troponin I: 0.017. LFTs: AST 16, ALT 16, alkaline phosphatase 419. DIAGNOSTIC DATA: Chest x-ray on 06/27: Shows no focal consolidation or alveolar edema. DISCHARGE CONDITION: Stable. ACTIVITY: As tolerated. The patient to consider outpatient PT. DIET: Regular diet. DISCHARGE INSTRUCTIONS: The patient should follow up with his PCP in a week and consider hospice. The patient should have his creatinine levels and CBC rechecked in a week. DISCHARGE MEDICATIONS: 1. Hydrocodone/acetaminophen 1 to 2 tablets p.o. q.6 hours p.r.n. 2. Zofran 8 mg sublingual q.8 hours p.r.n. 3. Allopurinol 300 mg p.o. t.i.d. Job ID: [id number] [facility]
--- NOTE | 2019-07-05 04:17 | PQF ---
[employer] Account Director Crystal Reports Winform Viewer RUIZJOSH ZAMORA BRENNA FAY [id number] [facility]-252 [id number] CLINICAL DOCUMENTATION CLARIFICATION FORM: POST DISCHARGE Addendum to original discharge summary date: ____ Late entry note date: __ DATE: 07/05/19 ATTN:Brenna Fay Please exercise your independent, professional judgment in responding to the clarification form. Clinical indicators are provided on the bottom of this form for your review Can you please further clarify if Acute tubular necrosis is ruled in or ruled out? ATN [ ] Ruled in diagnosis [ ] Continue to treat [ ] Resolved [ ] Ruled out diagnosis [ ] Cannot rule out diagnosis [ ] Other diagnosis [ X ] Unable to determine In addition, please specify: Present on Admission (POA): [ ] Yes [ ] No [ X ] Unable to determine For continuity of documentation, please document condition throughout progress notes and discharge summary. Thank You. CLINICAL INDICATORS - SIGNS / SYMPTOMS / LABS Laboratory- Creatinine: 5.63H, 5.05H, 3.13H, 1.72H, 1.39H Laboratory BUN: 06/2705=001 06/2839=112 06/2976=403 07/02=40 Laboratory GFR: 06/27=10 06/28=12 06/29=21 07/02=56 H and P pg.1-Renal failure with creatinine level of 5.63 and BUN of 137 H and P pg.2- Acute renal failure associated with likely acute tubular necrosis related to dehydration and chemotherapy Consult pg.3 Dr. Martin- Acute tubular necrosis is a concern given chronicity and severity of volume depletion DS pg.1- J LUIS 2/2 dehydration/severe metabolic acidosis/hyponatremia ED Notes p1 06/27 Patient presents for evaluation of abnormal renal function result ED Notes p1 06/27 reports fatigue and weakness RISK FACTORS DM- Consult pg.1 HTN- Consult pg.1 Gout- Consult pg.1 Cholangiocarcinoma- H and P pg.1 Dehydration HP pg 2 On Chemotherapy HP pg 2 CKD Consult pg 1 06/27 Moderate PCM PN pg2 06/28 TREATMENTS Nephrology consult- DR. Martin 06/27 Avoid nephrotoxic agents- Consult pg.3- Dr. Martin IV fluids- MAR Creatinine Monitoring MAR Electrolyte replacement PN pg2 06/28 (This form is maintained as a part of the permanent medical record) 2014 [employer]. All Rights Reserved [email or web address]
--- NOTE | 2019-07-05 04:20 | PQF ---
JOSH RUIZ UMA [id number] CLINICAL DOCUMENTATION CLARIFICATION FORM: POST DISCHARGE Addendum to original discharge summary date: ____ Late entry note date: __ DATE: 07/05/19 ATTN: Brenna Fay Please exercise your independent, professional judgment in responding to the clarification form. Clinical indicators are provided on the bottom of this form for your review Can you please further clarify if SIADH is ruled in or ruled out? SIADH [ ] Ruled in diagnosis [ ] Continue to treat [ ] Resolved [ X] Ruled out diagnosis [ ] Cannot rule out diagnosis [ ] Other diagnosis [ ] Unable to determine In addition, please specify: Present on Admission (POA): [ ] Yes [ ] No [ ] Unable to determine For continuity of documentation, please document condition throughout progress notes and discharge summary. Thank You. CLINICAL INDICATORS - SIGNS / SYMPTOMS / LABS Consult pg.2- Hyponatremia. Most likely due to hypovolemia and volume depletion Consult pg.2-Some component of syndrome of inappropriate ADH secretion cannot be ruled out DS pg.1- He also had a sodium level of 121 DS pg.1- J LUIS 2/2 dehydration/severe metabolic acidosis/hyponatremia Laboratory- Sodium: 121L, 129L, 133L ED Notes p1 06/27 Patient also reports nausea and vomiting ED Notes p1 06/27 reports fatigue and weakness RISK FACTORS J LUIS- H and P pg.1 severe dehydration- Consult pg.2 Anemia- DS pg.1 CKD Consult pg 1 06/27 DM- Consult pg.1 Moderate PCM PN pg2 06/28 TREATMENTS Electrolyte monitoring- Laboratory Nephrology consult- DR. Martin 06/27 Sodium chloride Normal saline IV- MAR Sodium bicarbonate 150 meq IV- MAR IVF Consult pg 3 06/27 (This form is maintained as a part of the permanent medical record) 2014 [employer]. All Rights Reserved [email or web address]
== END 2019-07-03 11:09 | disposition home or self-care (01) | DRG 683 ==
LOC: ERS 16:41 → 2NO 18:47
PROVIDERS: ADMIT Internal Medicine; ATTEND Internal Medicine
PROC: 30233N1 Transfusion of Nonautologous Red Blood Cells into Peripheral Vein, Percutaneous Approach (ICD-10-PCS; principal; 2019-06-29)
DX: N17.9 Acute kidney failure, unspecified (principal); C22.1 Intrahepatic bile duct carcinoma; E87.1 Hypo-osmolality and hyponatremia; E44.0 Moderate protein-calorie malnutrition; E87.2 Acidosis; E87.6 Hypokalemia; D72.819 Decreased white blood cell count, unspecified; D63.1 Anemia in chronic kidney disease; I12.9 Hypertensive chronic kidney disease with stage 1 through stage 4 chronic kidney disease, or unspecified chronic kidney disease; E11.22 Type 2 diabetes mellitus with diabetic chronic kidney disease; N18.9 Chronic kidney disease, unspecified; E83.42 Hypomagnesemia; Z68.22 Body mass index [BMI] 22.0-22.9, adult
CPT/HCPCS: 36415; 36430; 71045; 80048; 80053; 80069; 81003; 81015; 82248; 82550; 82570; 83540; 83550; 83615; 83690; 83735; 84100; 84156; 84300; 84466; 84484; 84540; 84550; 85025; 86850; 86900; 86901; 93005; 96365; J1642; J1644; J3475; J7042; J7070; P9016